=== PATIENT | female | born 1995 | race Two or more races ===

== ENCOUNTER 2022-08-06 12:46 | Emergency (ER) | payer OTHER, MEDICAID ==
[~2022-08-06] VITALS: Ht 162.6 cm; Wt 68.0 kg
[2022-08-06] MEDS ORDERED: SODIUM CHLORIDE 0.9% 1000ML BAG (SEPSIS BOLUS) IV ONE (13:30)
[2022-08-06 14:00] VITALS: BP 138/80
[2022-08-06 14:01] LABS: BASOPHILS % 0.9 % (0.0-2.0); EOSINOPHILS % 0.8 % (0.0-5.0); HEMATOCRIT. 38.7 % (36.0-48.0); HEMOGLOBIN. 13.6 g/dL (12.0-16.0); LYMPHOCYTES % 20.2 % (20.0-50.0); MEAN CORPUSCULAR HEMOGLOBIN 30.9 pg (28.0-32.0); MEAN CORPUSCULAR VOLUME 88.2 fL (81.0-99.0); MEAN PLATELET VOLUME 8.4 fl (7.4-10.4); NEUTROPHILS % 73.1 % (40.0-76.0); PLATELET 323 x1000/uL (130-400); RED BLOOD CELL COUNT 4.39 mill/uL (4.2-5.4); RED CELL DISTRIBUTION WIDTH 12.4 % (11.6-14.6)
[2022-08-06 14:13] LABS: CHLORIDE 101 mEq/L (98-107)
[2022-08-06 14:14] LABS: PROTHROMBIN TIME 10.3 sec (9.6-11.0)
[2022-08-06 14:21] LABS: BETA HYDROXYBUTYRATE 0.6 mMol/L (0.0-0.3); ETHANOL BLOOD < 10 mg/dL
[2022-08-06 14:25] LABS: BG BASE EXCESS -1.1 mmol/L (-2.0-2.0); BG CARBOXYHEMOGLOBIN 0.8 % (0.5-1.5); BG DEOXYHEMOGLOBIN 3.7 % (0.0-5.0); BG FRACTION INSPIRED OXYGEN 21; BG HCO3 ACT 23.2 mmol/L (22.0-26.0); BG METHEMOGLOBIN 0.5 % (0.0-1.5); BG OXYGEN SATURATION 96.3 % (92.0-98.5); BG PCO2 37.6 mmHg (35.0-45.0); BG PH 7.408 (7.350-7.450); BG PO2 82.3 mmHg (75.0-100.0); BG SAMPLE SITE LEFT BRACHIAL; BG TOTAL HEMOGLOBIN 13.9 g/dL (12.0-18.0); BG VENT MODE ROOM AIR
== END 2022-08-06 15:45 | disposition home or self-care (01) ==
LOC: ER 12:46 → CANBEDREQ 22:45
DX: E11.65 Type 2 diabetes mellitus with hyperglycemia (principal); I49.9 Cardiac arrhythmia, unspecified
CPT/HCPCS: 36415; 36600; 71045; 80053; 80320; 82010; 82375; 82805; 82962; 83605; 83690; 84145; 85025; 85610; 93005; 96360; 99285; J7030; G0480